=== PATIENT | male | born 1960 | race Caucasian/White ===

== ENCOUNTER 2017-01-15 17:43 | Emergency (ER) | payer OTHER ==
[2017-01-15 17:49] VITALS: BP 131/88; PULSE 92; TEMP 97.9; BMI 26.3
--- NOTE | 2017-01-15 19:51 | PDOC ---
History of Present Illness - General Chief Complaint: Headache Stated Complaint: BLOOD PRESSURE PROBLEM Time Seen by Provider: 01/15/17 19:09 - History of Present Illness Initial Comments: 01/15/17 20:17 56 year old male with PMH of DM (non-insulin depend diabetes), migraines (with previous ED presentations), urinary incontinence, leukpenia (BMB and pet scan negative), and HTN presenting with headache similar to his migraine for the past 5 days. He describes the pain as a bilateral temporal squeezing sensation with radiation to his occiput copresenting with photophobia, sonophobia, and nausea. He admits that this feels exactly liek his previous migraine episodes, however his topamax has not been helping. Admits to occassional hot and cold sensory fluctiation which is also typical for his migraines. Denies chest pain, cough, fevers Past History - Past Medical History Allergies/Adverse Reactions: Allergies Allergy/AdvReac Type Severity Reaction Status Date / Time acetaminophen Allergy Verified 01/15/17 20:30 Home Medications: Ambulatory Orders Amlodipine Besylate 10 mg PO DAILY 01/15/17 Anemia: No Asthma: No Cancer: No Cardiac Disorders: No CVA: No COPD: No CHF: No Dementia: No Diabetes: No GI Disorders: Yes (gastritis) Disorders: No HTN: Yes Hypercholesterolemia: No Liver Disease: No Seizures: No Thyroid Disease: No - Surgical History Abdominal Surgery: No Appendectomy: No Cardiac Surgery: No Cholecystectomy: No Lung Surgery: No Neurologic Surgery: No - Psycho/Social/Smoking Cessation Hx Suicidal Ideation: No Smoking History: Never smoked Have you smoked in the past 12 months: No Number of Cigarettes Smoked Daily: 0 Cigars Per Day: 0 Hx Alcohol Use: No Drug/Substance Use Hx: No Substance Use Type: None Hx Substance Use Treatment: No Review of Systems - Review of Systems Constitutional: Yes: Chills. No: Diaphoresis, Fever, Loss of Appetite HEENTM: No: Blurred Vision, Tearing, Recent change in vision, Double Vision Respiratory: No: Cough, Orthopnea, Shortness of Breath Cardiac (ROS): No: Chest Pain, Irregular Heart Rate, Lightheadedness ABD/GI: Yes: Nausea. No: Constipated, Diarrhea, Poor Appetite, Vomiting, Indigestion : Yes: Incontinence (For the past few years). No: Frequency Musculoskeletal: No: Back Pain, Joint Pain, Muscle Pain Integumentary: No: Bruising, Dryness, Erythema Neurological: Yes: Headache. No: Paresthesia, Ataxia, Dizziness Psychiatric: No: Anxiety, Depression *Physical Exam - Vital Signs Last Vital Signs Temp Pulse Resp BP Pulse Ox 97.9 F 92 H 18 131/88 98 01/15/17 17:47 01/15/17 17:47 01/15/17 17:47 01/15/17 17:47 01/15/17 17:47 - Physical Exam General Appearance: Yes: Nourished, Appropriately Dressed. No: Apparent Distress HEENT: positive: EOMI, ODILIA, Normal ENT Inspection, Normal Voice, Pharynx Normal Neck: positive: Trachea midline, Normal Thyroid. negative: Tender Respiratory/Chest: positive: Lungs Clear, Normal Breath Sounds. negative: Chest Tender, Respiratory Distress, Accessory Muscle Use Cardiovascular: positive: Regular Rhythm, Regular Rate, S1, S2. negative: Edema , JVD Gastrointestinal/Abdominal: positive: Normal Bowel Sounds, Flat, Soft. negative : Tender, Organomegaly Extremity: positive: Normal Inspection, Normal Range of Motion Integumentary: positive: Normal Color, Dry, Warm Neurologic: positive: Fully Oriented, Alert, Normal Mood/Affect Medical Decision Making - Medical Decision Making Fairly healthy 56 year old male with history of migraines presenting with 5 days of headache refractory to topamax. Will give 1 L NS,15 Toradol, 25 Benadryl , and 10 of Decadron for status migrainosis and monitor for response. 01/15/17 22:58 Upon re-evaluation patient was feeling much improved but still not completely better so we will administer another 15 MG of Toradol. 01/16/17 00:15 Patient much improved after 15 of Toradol IV. Will send home with PCP follow up as needed. *DC/Admit/Observation/Transfer Diagnosis at time of Disposition: Status migrainosus - Discharge Dispostion Disposition: HOME Condition at time of disposition: Improved Admit: No - Patient Instructions Printed Discharge Instructions: Migraine -- Adult Additional Instructions: You were seen for migraines that weren't responding to your home medication. You should speak to your primary care doctor about possibly receiving some rescue medication such as a triptan. Please return to the ED if you have the same headache that isn't getting better with your home medications. - Attestations Physician Attestion: I, Dr. Ilia Luis, attest that this document has been prepared under my direction and personally reviewed by me in its entirety. I further attest, that it accurately reflects all work, treatment, procedures and medical decision -making performed by me. 01/15/17 23:10 01/16/17 00:17
--- NOTE | 2017-01-15 19:57 | PDOC ---
Attending Attestation - HPI HPI: 01/15/17 21:27 The patient is a 56 year old male with history of hypertension, NIDDM, leukopenia, migraines (on Topamax) who presents to the ED with his typical migraine for the past 5 days. He describes his migraine as bilateral temporal that radiates to his occiput and is associated with his photophobia, sound sensitivity, and nausea. The patient states he takes his Topamax but it only helps for about two hours. The patient denies any fever, chills, vomiting, diarrhea, cough, shortness of breath, chest pain, or urinary symptoms. - Physicial Exam PE: 01/15/17 21:43 GENERAL: Awake, alert, and fully oriented, in no acute distress HEAD: No signs of trauma EYES: Positive photophobia, PERRLA, EOMI, sclera anicteric, conjunctiva clear ENT: Auricles normal inspection, hearing grossly normal, nares patent, oropharynx clear without exudates. Moist mucosa NECK: Normal ROM, supple, no lymphadenopathy, JVD, or masses LUNGS: Breath sounds equal, clear to auscultation bilaterally. No wheezes, and no crackles HEART: Regular rate and rhythm, normal S1 and S2, no murmurs, rubs or gallops ABDOMEN: Soft, nontender, normoactive bowel sounds. No guarding, no rebound. No masses EXTREMITIES: Well healed right wrist scar. Normal range of motion, no edema. No clubbing or cyanosis. No cords, erythema, or tenderness NEUROLOGICAL: Cranial nerves II through XII grossly intact. Normal speech, normal gait SKIN: Warm, Dry, normal turgor, no rashes or lesions noted. - Medical Decision Making 01/15/17 21:44 Documentation prepared by Della Silva, acting as director of medical review for Donna Paredes MD. <Della Silva - Last Filed: 01/15/17 21:33> - Resident Resident Name: Ilia Luis - ED Attending Attestation I have performed the following: I have examined & evaluated the patient, The case was reviewed & discussed with the resident, I agree w/resident's findings & plan, Exceptions are as noted - Medical Decision Making 56 yo M presents with status migranosis, similar to prior migraines. Will treat with reglan, toradol, benadryl, and decadron and monitor for improvement. No advanced imaging indicated at this time. <Donna Paredes - Last Filed: 01/15/17 23:46>
[2017-01-15] MEDS ORDERED: DEXAMETHASONE 0.5 MG TABLET PO STA (20:29)
[2017-01-15] MEDS ORDERED: SODIUM CHLORIDE 0.9% 1000 ML INFUS.BAG IV ONE (20:31)
[2017-01-15] MEDS ORDERED: diphenhydrAMINE HCL 25 MG CAPSULE (FP) PO ONE ×2 (20:32→21:00)
[2017-01-15] MEDS ORDERED: METOCLOPRAMIDE HCL 10 MG TABLET (FP) PO ONE ×2 (20:32→21:01)
[2017-01-15] MEDS ORDERED: KETOROLAC TROMETHAMINE 15 MG/ML VIAL IVPUSH ONE (20:32)
[2017-01-15] MEDS ORDERED: DEXAMETHASONE SOD PHOSPHATE 10 MG/1 ML VIAL ONE (21:00)
[2017-01-15] MEDS ORDERED: KETOROLAC TROMETHAMINE 15 MG/ML VIAL IVPUSH STA (23:07)
== END 2017-01-16 00:35 | disposition home or self-care (01) ==
LOC: JERFT 17:43 → JER 17:43
PROC: 3E0333Z Introduction of Anti-inflammatory into Peripheral Vein, Percutaneous Approach (ICD-10-PCS; principal; 2017-01-15)
DX: G43.801 Other migraine, not intractable, with status migrainosus (principal); I10 Essential (primary) hypertension; E11.9 Type 2 diabetes mellitus without complications; Z79.84 Long term (current) use of oral hypoglycemic drugs; D72.819 Decreased white blood cell count, unspecified
CPT/HCPCS: 96374; 96376; 99282-25; J8540

== ENCOUNTER 2017-02-03 10:48 | Emergency (ER) | payer OTHER ==
--- NOTE | 2017-02-03 11:01 | PDOC ---
Attending Attestation - Medical Decision Making 02/03/17 12:37 Chest XRay As reviewed by Dr. Carlos Puente IMPRESSION: No acute pathology. No comparison studies. Previous lower neck surgery. 02/03/17 14:09 Documentation prepared by Monika Patel, acting as medical interpreter for Rhett Plummer MD. <Monika Patel - Last Filed: 02/03/17 14:09> - Resident Resident Name: Jaci Cates - ED Attending Attestation I have performed the following: I have examined & evaluated the patient, The case was reviewed & discussed with the resident, I agree w/resident's findings & plan, Exceptions are as noted - HPI HPI: 02/03/17 12:25 The patient is a 56 year old male with a significant past medical history of hypertension, diabetes, leukopenia, and migraines, brought by ambulance to the Emergency Department s/p presyncopal episode just prior to arrival. The patient reports at 10am he got up from bed to walk to the bathroom when he felt dizzy and lightheaded which he describes as swaying side to side. Denies room- spinning sensation or unilateral weakness/numbness. Last known normal was last night prior to going to bed. He reports that he lowered himself to the ground, and denies loss of consciousness or head trauma. He also reports shortness of breath with the episode, which lasted for 10 minutes. He endorses occasional shortness of breath on exertion, though he currently complains only of generalized weakness. He states that 4 days he ago he experienced bilateral leg swelling, which has since resolved. The patient admits that he has not been on his diabetes medication for two months secondary to switch in PCP and not being able to fill his Rx. Patient denies nausea, vomiting, and diarrhea. Patient denies orthopnea. Patient denies visual changes. Patient denies chest pain, palpitations, and diaphoresis. Patient denies weakness to one side of the body, or numbness or tingling. Patient denies change in urine output, or dysuria. Familial Hx: father - TIA - Physicial Exam PE: 02/03/17 12:26 GENERAL: Well developed, well nourished. Awake and alert. No acute distress. HEENT: Normocephalic, atraumatic. PERRLA, EOMI. No conjunctival pallor. Sclera are non- icteric. Moist mucous membranes. Oropharynx is clear. NECK: Supple. Full ROM. No JVD. Carotid pulses 2+ and symmetric, without bruits. No thyromegaly. No lymphadenopathy. CARDIOVASCULAR: Regular rate and rhythm. No murmurs, rubs, or gallops. Distal pulses are 2+ and symmetric. PULMONARY: No evidence of respiratory distress. Lungs clear to auscultation bilaterally. No wheezing, rales or rhonchi. ABDOMINAL: Soft. Non-tender. Non-distended. No rebound or guarding. No organomegaly. Normoactive bowel sounds. MUSCULOSKELETAL Normal range of motion at all joints. No bony deformities or tenderness. No CVA tenderness. EXTREMITIES: No cyanosis. No clubbing. No edema. No calf tenderness. SKIN: Warm and dry. Normal capillary refill. No rashes. No jaundice. NEUROLOGICAL: Alert, awake, appropriate. Cranial nerves 2-12 intact. No nystagmus. Normal finger nose finger. No deficits to light touch in face, upper extremities and lower extremities. No motor deficits in the in face, upper extremities and lower extremities. Normal speech. Normal heel to hudson. Mild ataxia on tandem gait. PSYCHIATRIC: Cooperative. Good eye contact. Appropriate mood and affect. - Medical Decision Making 02/03/17 12:02 56 M with DM, HTN, migraines presents to ER with dizziness. Exam notable for mild ataxia with otherwise normal neuro exam. Ataxia concerning for CVA, though this is unlikely given pt's age and lack of other focal neuro deficits. Will evaluate for cardiac pathology with serial trops, BNP, EKGs. Low suspicion for ACS given lack of chest pain and normal EKG. PE unlikely as pt not endorsing SOB at this time and has normal vitals. Wells score of 0. Also consider metabolic derangement given h/o DM not currently on meds. Will also r/o infectious process with UA and CXR. - Labs, trop - CXR, UA - CTH - Consider MR brain - Reassess <Rhett Plummer - Last Filed: 02/03/17 20:01> Heart Score/ECG Review - History History: Slightly suspicious - Electrocardiogram EKG: Normal - Age Age: 45-65 - Risk Factors Risk Factors Heart Score: Yes Hx Hypertension, Yes Hx Diabetes Based on the list above the patient has:: 1-2 risk factors (EKG is NSR, no THAO/ STDs, no TWIs, intervals normal, axis normal) <Rhett Plummer - Last Filed: 02/03/17 20:01> NIH Stroke Scale - Last Known Well Date/Time & Onset Date Last Known Well: 02/02/17 - Initial Evaluation Level of consciousness: Alert Ask patient the month and their age: Answers both correctly Ask patient to open & close eyes; make fist and let go: Obeys both correctly Best gaze (horizontal eye movement): Normal Visual field testing: No visual field loss Facial paresis (Show teeth/raise eyebrows/close eyes tight): Normal symmetrical movement Motor Function: Left Arm: Normal Motor Function: Right Arm: Normal (extends arm 90 (or 45) degrees for 10 seconds without drift Motor Function: Left Leg: Normal (extends leg 30 degrees for 5 seconds without drift) Motor Function: Right Leg: Normal (extends leg 30 degrees for 5 seconds without drift) Limb Ataxia: No ataxia Sensory(Use pinprick test arms,legs,trunk,face/side to side): Normal Best language (Describe picture, name items, read sentences): No Aphasia Dysarthria (read several words): Normal articulation Extinction and Inattention: No abnormality - Total Score NIH Stroke Scale Score: 0 <Rhett Plummer - Last Filed: 02/03/17 20:01>
[2017-02-03 11:12] VITALS: TEMP 97.7; BMI 26.3
--- NOTE | 2017-02-03 11:41 | PDOC ---
History of Present Illness - General Chief Complaint: Syncope/Near Syncope Stated Complaint: DIZZINESS Time Seen by Provider: 02/03/17 11:00 History Source: Patient, Spouse Exam Limitations: No Limitations - History of Present Illness Initial Comments: This is a 56 yo male with h/o NIDDM, HTN (takes Norvasc), GERD (takes omeprazole 40 mg/day), and chronic headaches (takes topiramax) who presents BIBA after near-syncope. He stood up from bed this morning at about 10:10am and was walking to the bathroom when he became lightheaded, weak all over, short of breath, and nauseated. He was veering to the side while walking, and he slumped to the floor. He denies having lost consciousness and did not hit his head or sustain any trauma. He picked himself up and returned to bed, told his , and she called 911. The patient states that his symptoms have since resolved. He recalls that about 4 days ago both of his feet were significantly swollen, which has never happened to him before, and he denies any prolonged standing or other factors that may have caused this. He does note having stopped taking his normal diabetes medication (linagliptin) about 2 months ago because he ran out and is in between physicians. He does not measure his blood sugar at home. Past History - Past Medical History Allergies/Adverse Reactions: Allergies Allergy/AdvReac Type Severity Reaction Status Date / Time acetaminophen AdvReac Severe Vomiting Verified 02/03/17 11:09 Home Medications: Ambulatory Orders Amlodipine Besylate 10 mg PO DAILY 01/15/17 Omeprazole 40 mg PO DAILY 02/03/17 Topiramate [Topamax] 25 mg PO DAILY 02/03/17 Anemia: No Asthma: No Cancer: No Cardiac Disorders: No CVA: No COPD: No CHF: No Dementia: No Diabetes: Yes (TYPE II) GI Disorders: Yes (gastritis) Disorders: No HTN: Yes Hypercholesterolemia: No Liver Disease: No Seizures: No Thyroid Disease: No - Surgical History Abdominal Surgery: No Appendectomy: No Cardiac Surgery: No Cholecystectomy: No Lung Surgery: No Neurologic Surgery: No - Psycho/Social/Smoking Cessation Hx Suicidal Ideation: No Smoking History: Never smoked Have you smoked in the past 12 months: No Number of Cigarettes Smoked Daily: 0 Cigars Per Day: 0 Hx Alcohol Use: No Drug/Substance Use Hx: No Substance Use Type: None Hx Substance Use Treatment: No Cardiac Specific PMH - Complaint Specific PMHX Pacemaker: No Review of Systems - Review of Systems Constitutional: No: Chills, Fever, Unexplained wgt Loss HEENTM: No: Nose Congestion, Throat Pain Respiratory: Yes: Shortness of Breath (resolved). No: Cough Cardiac (ROS): Yes: Lightheadedness. No: Chest Pain ABD/GI: Yes: Nausea (resolved). No: Constipated, Diarrhea, Vomiting : No: Burning, Dysuria Musculoskeletal: No: Back Pain, Neck Pain Integumentary: No: Bruising, Rash Neurological: Yes: Unsteady Gait (resolved), Dizziness (resolved lightheadedness ). No: Headache, Numbness, Tingling, Weakness Endocrine: No: Unexplained Weight Gain, Unexplained Weight Loss *Physical Exam - Vital Signs Last Vital Signs Temp Pulse Resp BP Pulse Ox 97.7 F 70 18 117/69 98 02/03/17 11:05 02/03/17 20:05 02/03/17 20:05 02/03/17 20:05 02/03/17 20:05 - Physical Exam General Appearance: Yes: Nourished, Appropriately Dressed, Other (nontoxic and conversive, answering appropriately). No: Apparent Distress HEENT: positive: EOMI, Normal Voice, Hearing Grossly Normal, Other (dry mucous membranes). negative: Scleral Icterus (R), Scleral Icterus (L), Nasal Congestion Neck: positive: Trachea midline, Supple. negative: Tender, Rigid Respiratory/Chest: positive: Lungs Clear, Normal Breath Sounds. negative: Respiratory Distress, Crackles, Rhonchi, Stridor, Wheezing Cardiovascular: positive: Regular Rhythm, Regular Rate. negative: Murmur Gastrointestinal/Abdominal: positive: Normal Bowel Sounds, Soft. negative: Tender, Organomegaly, Pulsatile Mass, Guarding Musculoskeletal: positive: Normal Inspection. negative: CVA Tenderness, Decreased Range of Motion, Vertebral Tenderness Extremity: positive: Normal Capillary Refill, Normal Inspection, Normal Range of Motion. negative: Tender, Cyanosis Integumentary: positive: Normal Color, Dry, Warm. 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 negative: EOM Palsy, Facial Droop, Numbness, Sensory Deficit, Confused Heart Score/ECG Review - History History: Slightly suspicious - Electrocardiogram EKG: Normal - Age Age: 45-65 - Risk Factors Risk Factors Heart Score: Yes Hx Hypertension, Yes Hx Diabetes Based on the list above the patient has:: 1-2 risk factors - Troponin Troponin: </= normal limit - Score Heart Score - Total: 2 #1 ECG reviewed & interpreted by me at: 10:55 NSR with sinus arrhythmia, rate of 79. ED Treatment Course - LABORATORY CBC & Chemistry Diagram: 02/03/17 11:33 02/03/17 11:33 - ADDITIONAL ORDERS Additional order review: 02/03/17 02/03/17 11:33 11:04 RBC 4.70 MCV 84.2 MCHC 33.4 RDW 13.9 MPV 8.4 Neutrophils % 39.8 L D Lymphocytes % 48.0 H D Monocytes % 10.1 Eosinophils % 1.7 D Basophils % 0.4 POC Glucometer [phone] - RADIOLOGY Radiology Studies Ordered: Category Date Time Status HEAD CT WITHOUT CONTRAST [CT] Stat CT Scan 02/03/17 11:46 Completed BRAIN MRA W/O CONTRAST [MRI] Stat MRI 02/03/17 13:31 Completed BRAIN MRI W/O CONTRAST [MRI] Stat MRI 02/03/17 13:31 Completed NECK MRA W/O CONTRAST [MRI] Stat MRI 02/03/17 13:31 Completed CHEST PA & LAT [RAD] Stat Radiology 02/03/17 11:31 Completed Chest X-Ray Result: No Infiltrates Comments: Prior neck fusion noted - Medications Given in the ED: ED Medications Discontinued Medications Generic Name Dose Route Start Last Admin Trade Name Freq PRN Reason Stop Dose Admin Sodium Chloride 1,000 mls @ 1,000 mls/hr 02/03/17 12:25 02/03/17 13:11 Normal Saline - IV 02/03/17 13:24 1,000 mls/hr ASDIR STA Administration Sodium Chloride 1,000 mls @ 1,000 mls/hr 02/03/17 14:10 02/03/17 15:03 Normal Saline - IV 02/03/17 15:09 Not Given ASDIR STA Medical Decision Making - Medical Decision Making 56 yo male with DM, HTN who p/w lightheadedness and near syncope. Exam with mild ataxia especially with heel-to-toe walking. DDX includes stroke, ICH, electrolyte imbalance, ACS, arrhythmia. Ordered are CBC, CMP, CXR, troponin, BNP, UA w/ cx, Head CT WO contrast. 02/03/17 13:36 CBC notable for leukopenia to 2.7 (but leukopenia has been noted and worked up in prior EMR). CXR without acute cardiopulmonary processes. Head CT without e/o acute intracranial pathology. Ordered is MRI brain WO, and MRA brain & neck WO. 02/03/17 17:57 Repeat troponin ordered. 02/03/17 19:00 Patient signed out to excellent Dr. Matthew Camejo at [facility]. *DC/Admit/Observation/Transfer Diagnosis at time of Disposition: Lightheaded - Discharge Dispostion Disposition: HOME Condition at time of disposition: Improved Admit: No - Referrals Referrals: Yair Cummins MD [Primary Care Provider] - - Patient Instructions Additional Instructions: Please return to the ER if symptoms persist, worsen, or if new symptoms arise. Print Language: [place] - Attestations Physician Attestion: I, Dr. Jaci Cates, attest that this document has been prepared under my direction and personally reviewed by me in its entirety. I further attest, that it accurately reflects all work, treatment, procedures and medical decision -making performed by me.
[2017-02-03 11:45] LABS: BASOPHIL 0.4 % (0-2.0); EOSINOPHIL 1.7 % (0-4.5); MCH 28.1 pg (25.7-33.7); MCHC 33.4 g/dl (32.0-35.9); MEAN CELL VOLUME 84.2 fl (80-96); MEAN PLT VOLUME 8.4 fl (7.5-11.1); NEUTROPHILS 39.8 % (42.8-82.8); PLATELET COUNT 204 K/MM3 (134-434); RDW 13.9 % (11.9-15.9); WHITE BLOOD COUNT 2.7 K/mm3 (4.0-10.0)
[2017-02-03 12:07] LABS: ALBUMIN 3.9 g/dl (3.4-5.0); ANION GAP 8 (8-16); BILIRUBIN,TOTAL 0.4 mg/dL (0.2-1.0); CALCIUM 8.9 mg/dL (8.5-10.1); CO2 23 mmol/L (21-32); CREATININE 1.3 mg/dL (0.7-1.3); GLUCOSE,RANDOM 134 mg/dL (74-106); MAGNESIUM 2.4 mg/dL (1.8-2.4); SGOT/AST 16 U/L (15-37); SGPT/ALT 30 U/L (12-78); TOT PROT 7.1 g/dl (6.4-8.2)
[2017-02-03 12:10] LABS: ALK PHOS 50 U/L (45-117); TROPONIN I < 0.02 ng/ml (0.00-0.05)
[2017-02-03] MEDS ORDERED: SODIUM CHLORIDE 1,000 ML IV STA ×2 (12:25→14:10)
[2017-02-03 12:27] LABS: HIV 1 & 2 AB NEGATIVE; HIV 1 AGp24 NEGATIVE
[2017-02-03 13:01] LABS: URINE APPEARANCE CLEAR; URINE BILIRUBIN NEGATIVE (NEGATIVE); URINE BLOOD NEGATIVE (NEGATIVE); URINE COLOR LTYELLOW; URINE GLUCOSE (UA) NEGATIVE (NEGATIVE); URINE KETONE NEGATIVE (NEGATIVE); URINE LEUK ESTERASE NEGATIVE (NEGATIVE); URINE NITRITE NEGATIVE (NEGATIVE); URINE PROTEIN NEGATIVE (NEGATIVE); URINE UROBILINOGEN NEGATIVE mg/dL (0.2-1.0)
--- NOTE | 2017-02-03 19:51 | PDOC ---
*Physical Exam - Vital Signs Last Vital Signs Temp Pulse Resp BP Pulse Ox 97.7 F 80 20 123/70 97 02/03/17 11:05 02/03/17 14:40 02/03/17 14:40 02/03/17 14:40 02/03/17 14:40 ED Treatment Course - LABORATORY CBC & Chemistry Diagram: 02/03/17 11:33 02/03/17 11:33 - ADDITIONAL ORDERS Additional order review: Laboratory Results 02/03/17 02/03/17 02/03/17 13:00 12:50 11:33 Sodium 142 Potassium 3.8 Chloride 111 H Carbon Dioxide 23 D Anion Gap 8 BUN 25 H D Creatinine 1.3 D Creat Clearance w eGFR 57.53 POC Glucometer Random Glucose 134 H Calcium 8.9 Phosphorus 3.0 Magnesium 2.4 Total Bilirubin 0.4 D AST 16 ALT 30 Alkaline Phosphatase 50 Troponin I < 0.02 B-Natriuretic Peptide 15.02 Total Protein 7.1 Albumin 3.9 Urine Color Ltyellow Urine Appearance Clear Urine pH 6.0 Ur Specific Alfred 1.025 Urine Protein Negative Urine Glucose (UA) Negative Urine Ketones Negative Urine Blood Negative Urine Nitrite Negative Urine Bilirubin Negative Urine Urobilinogen Negative Ur Leukocyte Esterase Negative Acetone, Qual Negative 02/03/17 11:04 Sodium Potassium Chloride Carbon Dioxide Anion Gap BUN Creatinine Creat Clearance w eGFR POC Glucometer [id number] Random Glucose Calcium Phosphorus Magnesium Total Bilirubin AST ALT Alkaline Phosphatase Troponin I B-Natriuretic Peptide Total Protein Albumin Urine Color Urine Appearance Urine pH Ur Specific Alfred Urine Protein Urine Glucose (UA) Urine Ketones Urine Blood Urine Nitrite Urine Bilirubin Urine Urobilinogen Ur Leukocyte Esterase Acetone, Qual 02/03/17 02/03/17 11:33 11:04 RBC 4.70 MCV 84.2 MCHC 33.4 RDW 13.9 MPV 8.4 Neutrophils % 39.8 L D Lymphocytes % 48.0 H D Monocytes % 10.1 Eosinophils % 1.7 D Basophils % 0.4 POC Glucometer [phone] - RADIOLOGY Chest X-Ray Result: No Infiltrates Comments: Prior neck fusion noted - Medications Given in the ED: ED Medications Discontinued Medications Generic Name Dose Route Start Last Admin Trade Name Freq PRN Reason Stop Dose Admin Sodium Chloride 1,000 mls @ 1,000 mls/hr 02/03/17 12:25 02/03/17 13:11 Normal Saline - IV 02/03/17 13:24 1,000 mls/hr ASDIR STA Administration Sodium Chloride 1,000 mls @ 1,000 mls/hr 02/03/17 14:10 02/03/17 15:03 Normal Saline - IV 02/03/17 15:09 Not Given ASDIR STA Medical Decision Making - Medical Decision Making 02/03/17 19:50 Patient was signed out to me by day team, Dr. Cates. Pending MRI and MRA reading. Pending repeat trop. Negative head CT. If reports are negative, patient is safe for D/C. 02/03/17 20:17 Trop negative. Pending MRI reads. 02/03/17 21:40 All MR images are showing no acute pathologies. 02/03/17 23:05 Patient states that he is ready to go home. His will stay with him and will keep an eye on him. *DC/Admit/Observation/Transfer Diagnosis at time of Disposition: Lightheadedness - Discharge Dispostion Disposition: HOME Condition at time of disposition: Improved Admit: No - Referrals Referrals: Yair Cummins MD [Primary Care Provider] - - Patient Instructions - Post Discharge Activity - Attestations Physician Attestion: 02/03/17 23:05 I, Dr. Matthew Camejo, attest that this document has been prepared under my direction and personally reviewed by me in its entirety. I further attest, that it accurately reflects all work, treatment, procedures and medical decision -making performed by me.
[2017-02-03 20:06] VITALS: BP 117/69; PULSE 70
--- NOTE | 2017-02-04 08:16 | EKG ---
Test Reason : Blood Pressure : / mmHG Vent. Rate : 079 BPM Atrial Rate : 079 BPM P-R Int : 152 ms QRS Dur : 086 ms QT Int : 374 ms P-R-T Axes : 043 048 043 degrees QTc Int : 428 ms NORMAL SINUS RHYTHM WITH SINUS ARRHYTHMIA NORMAL ECG NO PREVIOUS ECGS AVAILABLE Confirmed by NABEEL OSORIO, EDGAR ([id number] on 02/04/2017 8:15:47 AM Referred By: Confirmed By:EDGAR LEES MD
== END 2017-02-03 23:09 | disposition home or self-care (01) ==
LOC: JER 10:48
PROC: 3E0337Z Introduction of Electrolytic and Water Balance Substance into Peripheral Vein, Percutaneous Approach (ICD-10-PCS; principal; 2017-02-03)
DX: R42 Dizziness and giddiness (principal); I10 Essential (primary) hypertension; E11.9 Type 2 diabetes mellitus without complications; K21.9 Gastro-esophageal reflux disease without esophagitis; R51 Headache; Z88.6 Allergy status to analgesic agent
CPT/HCPCS: 36415; 70450-TC; 70544-TC; 70547-TC; 70551-TC; 71020-TC; 80053; 81003; 82009; 83735; 83880; 84100; 84484; 85025; 87086; 87389; 93005; 93010; 96360; 96361; 99285-25

== ENCOUNTER → 2018-06-05 | Day surgery (SDC) | payer OTHER ==
--- NOTE | 2018-06-06 15:35 | PATH ---
Cytology Non-Gynecological Report Patient Name: LEI THIBODEAUX [facility]. Rec. #: [id number] /Age/Gender: 1960 (Age: 57) / M Account: [id number] Location: RADIOLOGY INTER Taken: 06/05/2018 Received: 06/05/2018 Reported: 06/06/2018 Physicians: Charlene Jasso M.D. Specimen(s) Received RIGHT THYROID Clinical History Right thyroid nodule, 1.93 x 1.53 x 1.29 cm Final Diagnosis THYROID, RIGHT, FINE NEEDLE ASPIRATION: SATISFACTORY FOR EVALUATION. [place] IV: SUSPICIOUS FOR FOLLICULAR NEOPLASM. FOLLICULAR CELLS WITH MILD NUCLEAR ENLARGEMENT, INTRANUCLEAR CLEARING, AND SUBTLE NUCLEAR GROOVES DISPERSED SHEETS, TRABECULAR FRAGMENTS AND MICROFOLLICLES. SEE COMMENT. Comment: Differential diagnosis includes a follicular neoplasm (adenoma/carcinoma), follicular variant of papillary thyroid carcinoma, and Non-invasive follicular thyroid neoplasm with papillary-like nuclear features (NIFTP). Case seen interdepartmentally. Findings discussed with Dr. Rodríguez. Electronically Signed Manasa Parker M.D. Gross Description Received are eight direct smears, four of which are air-dried and Diff-Quik stained, and four of which are alcohol fixed and Pap stained. Also received is 20 ml of bloody formalin from which one cellblock is prepared.
== END | disposition home or self-care (01) ==
LOC: JRADIR 08:49 → EDSTATUS 09:00
PROVIDERS: ATTEND Internal Medicine Endocrinology, Diabetes & Metabolism
PROC: 0G9H3ZX Drainage of Right Thyroid Gland Lobe, Percutaneous Approach, Diagnostic (ICD-10-PCS; principal; 2018-06-05)
DX: E04.1 Nontoxic single thyroid nodule (principal)
CPT/HCPCS: 76942; 88173; 88305-TC

== ENCOUNTER 2023-11-02 06:49 | Day surgery (SDC) | payer OTHER ==
[2023-10-29 16:25] VITALS: BMI 24.8
[2023-11-02] MEDS ORDERED: BUPIVACAINE HCL/EPINEPHRINE/PF 30 ML VIAL IJ ONE (07:26)
[2023-11-02] MEDS ORDERED: MIDAZOLAM HCL 2 MG/2 ML SINGLE DOSE VIAL ONE (07:53)
[2023-11-02] MEDS ORDERED: PROPOFOL 20 ML ONE ×2 (07:53→10:06)
[2023-11-02] MEDS ORDERED: LIDOCAINE HCL/PF 2% SDV 5ML VIAL ONE (07:53)
[2023-11-02] MEDS ORDERED: DEXAMETHASONE SOD PHOSPHATE 4 MG/1 ML VIAL ONE (07:57)
[2023-11-02] MEDS ORDERED: BUPIVACAINE HCL/PF 0.5% (5 MG/ML) 30 ML VIAL IJ ONE (07:58)
[2023-11-02] MEDS ORDERED: BUPIVACAINE HCL/PF 0.5% (5MG/ML) 10 ML VIAL ONE (07:59)
[2023-11-02] MEDS ORDERED: PROPOFOL 40 ML ONE ×2 (09:14→10:55)
[2023-11-02] MEDS ORDERED: ceFAZolin SODIUM 1 GM VIAL ONE (09:21)
[2023-11-02] MEDS ORDERED: hydrALAZINE HCL 20 MG/ML VIAL ONE (10:32)
[2023-11-02] MEDS ORDERED: ONDANSETRON 4 MG/2 ML VIAL ONE ×2 (11:14→12:30)
[2023-11-02] MEDS ORDERED: KETOROLAC TROMETHAMINE 30 MG/1 ML VIAL ONE (11:14)
[2023-11-02] MEDS ORDERED: LACTATED RINGERS SOLUTION 1,000 ML IV SCH (11:45)
[2023-11-02] MEDS ORDERED: oxyCODONE HCL 5 MG TABLET PO PRN ×4 (11:45)
[2023-11-02] MEDS ORDERED: PROMETHAZINE HCL 25 MG/1 ML VIAL IVPB PRN (11:45)
[2023-11-02] MEDS: ACETAMINOPHEN 1000 MG/100 ML BAG IVPB ONE (11:50)
[2023-11-02] MEDS ORDERED: FENTANYL CITRATE/PF 50 MCG/ML VIAL ONE ×3 (11:55→12:30)
[2023-11-02] MEDS: ONDANSETRON 4 MG/2 ML VIAL IVPUSH PRN (12:37)
[2023-11-02 14:00] VITALS: RESP 17; TEMP 97.2
[2023-11-02 14:16] VITALS: BP 124/78; PULSE 81
== END 2023-11-02 14:20 | disposition home or self-care (01) ==
LOC: FASU 06:49
PROVIDERS: ATTEND Orthopaedic Surgery
PROC: 0RHJ48Z Insertion of Spacer into Right Shoulder Joint, Percutaneous Endoscopic Approach (ICD-10-PCS; 2023-11-02)
PROC: 0RBJ4ZZ Excision of Right Shoulder Joint, Percutaneous Endoscopic Approach (ICD-10-PCS; principal; 2023-11-02 09:41)
PROC: 0LS34ZZ Reposition Right Upper Arm Tendon, Percutaneous Endoscopic Approach (ICD-10-PCS; 2023-11-02 09:41)
PROC: 0RNJ4ZZ Release Right Shoulder Joint, Percutaneous Endoscopic Approach (ICD-10-PCS; 2023-11-02 09:41)
DX: S46.011D Strain of muscle(s) and tendon(s) of the rotator cuff of right shoulder, subsequent encounter (principal); M75.21 Bicipital tendinitis, right shoulder; M75.51 Bursitis of right shoulder; M65.811 Other synovitis and tenosynovitis, right shoulder; S43.431D Superior glenoid labrum lesion of right shoulder, subsequent encounter; M75.01 Adhesive capsulitis of right shoulder
CPT/HCPCS: 88304-TC; 94760; C1713; C1763; C1883; J0131